=== PATIENT | female | born 2005 | race Caucasian/White ===

== ENCOUNTER 2023-04-12 15:46 | Observation (INO) ==
--- NOTE | 2023-04-12 15:58 | ED Triage Note ---
Date of Service April 12, 2023 History of Present Illness This patient was briefly evaluated while in triage. An abbreviated physical exam was performed. This patient is a 17-year-old Female who presents to the ED for evaluation of N/T over entire left side of body since September was just leg, now all left side progressively getting worse seen multiple places/providers primarily in [place] headaches cannot see neuro until August Her doctors told her to go to the ED if it ever got worse. Physical Exam GENERAL: NAD, ambulatory CARDIOVASCULAR: RRR RESPIRATORY: CTA ABDOMEN: BS x 4. Nontender to palpation. NEURO: Normal gait. No slurring of speech. No facial droop. 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 Initial orders for labs and / or imaging were placed and patient was placed in the waiting area until a bed is available. Please see further documentation for the full ED course.
[2023-04-12 16:37] LABS: Hematocrit (blood only) 34.8 % (37.0-47.0); Hemoglobin 11.8 g/dl (12.0-16.0); Mean Corpuscular Hemoglobin 29.1 pg (25.0-34.0); Mean Corpuscular Hgb Conc 33.9 g/dL (32.0-36.0); Mean Corpuscular Volume 85.7 fL (80.0-100.0); Mean Platelet Volume 10.7 fL (9.4-12.4); Platelet Count 279 K/uL (130-400); RDW Standard Deviation 37.7 fL (36.4-46.3); Red Blood Count 4.06 M/uL (4.20-5.40); White Blood Count 9.22 K/ul (4.8-10.8)
[2023-04-12 16:57] LABS: Alanine Aminotransferase 9 U/L (7-52); Albumin Globulin Ratio 1.5 (0.9-2); Albumin Level 4.4 gm/dl (3.4-5.0); Alkaline Phosphatase 44 U/L (34-104); Anion Gap 6 (3-11); Aspartate Aminotransferase 15 U/L (13-39); BUN Creatinine Ratio 13.6 (10-20); Bilirubin,Total 0.4 mg/dl (0.2-1.0); Blood Urea Nitrogen 9 mg/dl (6-23); Calcium 9.1 mg/dl (8.6-10.3); Carbon Dioxide 25 mmol/L (21-32); Chloride 107 mmol/L (98-107); Creatinine Clr Calc Pharmacy 133.3 ml/min; Est GFR (African American) 148.4 ml/min; Est GFR (Non-African American) 128.1 ml/min; Globulin 2.9 gm/dl (2.5-4.0); Glucose 83 mg/dl (70-99(Fasting)); Magnesium 2.2 mg/dl (1.7-2.4); Potassium 3.7 mmol/L (3.5-5.1); Sodium 138 mmol/L (136-145); Total Protein 7.3 gm/dl (6.0-8.3)
[2023-04-12 17:09] LABS: INR 0.9 (0.9-1.1); Partial Thromboplastin Time 27.6 Seconds (21.0-31.0); Prothrombin Time 10.3 Seconds (9.0-12.0)
[2023-04-12] MEDS ORDERED: OPTIRAY 320 500ml IV ONE (17:20)
--- NOTE | 2023-04-12 18:08 | CT Scan Report ---
CT angio neck with con, CT angio head w con, CT head/brain wo con CLINICAL HISTORY: headaches, left sided body N/T/W TECHNIQUE: Contiguous axial CT images of the head were acquired from the base of the skull to the praveen hilda without intravenous contrast administration. CT angiography of the head and neck was performed f ollowing intravenous administration of iodinated contrast. Coronal and sagittal MIPS were obtained fr om the axial data set and were submitted for review. Automated dose lowering techniques and/or adjus tment according to patient size were utilized for this examination. All measurements were calculated based on NASCET criteria. CT DOSE: 1021.11 mGy.cm Comparison: None available at the time of this dictation. FINDINGS: CT head: There is no acute intracranial hemorrhage or evidence of acute territorial infarction. No sh ift of the midline structures, mass effect, or extra-axial abnormalities are shown. Small thyroid nodules are seen which do not require follow-up by ACR criteria. CTA Neck: A 3 vessel aortic arch is shown. There is no significant atherosclerotic plaque in the aor tic arch or the origins of the innominate, left common carotid, and left subclavian arteries. The co mmon carotid, external carotid, cervical segments of the internal carotid arteries, and the cervical segments of the vertebral arteries are patent without hemodynamically significant stenosis. The left vertebral artery is dominant. CTA Head: The anterior and posterior cerebral circulations are patent. No hemodynamically significan t stenosis, aneurysm, dissection, or arteriovenous malformation is shown. IMPRESSION: 1. No acute intracranial hemorrhage, evidence of acute territorial infarction, or other acute intrac ranial disease process. 2. No occlusion, hemodynamically significant stenosis, or dissection in the major cervical arteries. 3. No occlusion, hemodynamically significant stenosis, aneurysm, dissection, or arteriovenous malfor mation in the major intracranial arteries. Assessment of stenosis of the internal carotid arteries is based on NASCET criteria. ACT 112: Negative or not required by law. Electronically signed by: Lamin Main M.D. 04/12/2023 6:06 PM
--- NOTE | 2023-04-12 19:15 | Emergency Department Note ---
Impression & Plan Acute left-sided weakness, Falling, Anemia ED Provider Note NAME: YOSELIN ESPINO AGE: 17 SEX: F : 2005 ARRIVES VIA: Walk-In INFORMANT: [Patient] ED PROVIDER(S): [Kiran Willingham MD] CHIEF COMPLAINT: TIA symptoms HISTORY OF PRESENT ILLNESS: The patient is a 17-year-old female who has had increasing numbness to the left side of her body for at least 6 months. It started with some pain in her left foot and she was initially diagnosed with a stress fracture and then an Achilles injury and then eventually, these were thought to be missed diagnosed. She has developed numbness that has spread from her foot up to now involve her left arm. In the last several days, things have worsened and she has fallen a few times because her left leg gives out. She trips at times. She drops things with her left hand. There is no headache, no chest pain. No right-sided symptoms. No speech issue. She has had MRIs of her cervical and lumbar spine within the last few weeks, no significant abnormalities on imaging. She has seen doctors in [place] where she typically resides, they have no answers for her issues. She has a neurology appointment set up for early next year. As things worsened, she presents to the ER for evaluation. The patient did contact her doctors office today in [facility], they referred her to the ER as things were worsening. She is a student here at [employer]. PMHx/PSHx/Social Hx: See Below PHYSICAL EXAM: GENERAL: Patient is in no acute distress. HEENT: No acute trauma, normocephalic atraumatic, mucous membranes moist, no nasal congestion. NECK: No stridor, no adenopathy, no meningismus, trachea is midline. LUNGS: Clear to auscultation bilaterally, no wheeze, no rhonchi, breath sounds equal. HEART: Without murmurs gallops or rubs, regular rate and rhythm. ABDOMEN: Soft, nontender, no peritonitis. EXTREMITIES: No cyanosis, full range of motion of all the joints without pain or difficulty. NEUROLOGIC: Oriented x 3. She has difficulty raising her left leg off the bed and cannot hold it for 5 seconds. She has some subtle drift of her left upper extremity as well. Cerebellar function is difficult in the left lower extremity but she does accomplish the task. No issues with cerebellar functioning of the left upper extremity. No speech slur or facial droop. Reflexes are 2/4 in the patella and Achilles bilaterally. SKIN: No jaundice, no diaphoresis. DIFFERENTIAL DIAGNOSIS: Lyme disease, demyelinating disease, MS, stroke, clots, arterial dissection, syphilis, viral illness, encephalitis, among others. EMERGENCY DEPARTMENT PROCEDURES: MEDICAL DECISION MAKING: There is no leukocytosis. A mild anemia was seen. There is a normal platelet count. Sed rate is not elevated making ongoing infection/inflammation less likely. There is no coagulopathy. No renal failure or significant electrolyte abnormality. No concerning liver enzyme elevation. C-reactive protein was not elevated making persistent infection/inflammation less likely. Patient appeared to be in a euthyroid state. Lyme disease testing returned negative. Syphilis testing is currently pending. Brain CT showed no acute bleed or mass effect. CT angio of the head and neck were performed, there was no significant stenosis or clot seen. On exam, patient did have left-sided weakness especially in the left lower extremity. No speech slur. She was not toxic or febrile. Patient requires a hospital stay and further work-up. She is in need of a thorough neurologic evaluation. She can be seen by neurology while here in our hospital. I spoke with the patient and her father. Given the ongoing symptoms, given the worsening of her condition, I do think a hospital stay is necessary. At this point, the cause for her complaint is unclear. Prior/Outside records/notes reviewed: Previous radiology reports/imaging. ECG per my interpretation: Indication was possible stroke. The ECG shows a normal sinus rhythm with a rate of 91. There is no ST elevation, no PVCs. The QTc is 428. Imaging/x-ray results per my interpretation: Chronic Medical/Social conditions affecting care: College student. Care/Management discussed with: Case management, the on-call hospitalistDr. Holder Level of care consideration(s): After review of the information above and other included data: --I believe the patient requires escalation of care to admission DISPOSITION: Admission with neurology consult. Past Med/Surg History Medical History No pertinent past medical history Surgical History (Updated 09/11/20 @ 12:41 by Arnold Vazquez MD) No pertinent past surgical history Social History Smoking Status: Never smoker Hx Substance Use: No Preferred Language: Tajik Communication Ability: Effective Purchasing And Claims Supervisor Required: No Beliefs That Will Affect Care: None Current Living Situation: Other Current Living Situation Comment: apartment with roomates Other Information That Helps Us Care for You: No Feels Safe at Home: Yes Safety Concerns: Feels Safe At This Time Assistive Devices: None Allergies Allergies Allergy/AdvReac Type Severity Reaction Status Date / Time dog dander Allergy Intermediate SNEEZING, Verified 04/12/23 19:27 CONGESTION Home Meds Home Medications Medication Instructions Recorded Confirmed atomoxetine 80 mg capsule 80 mg PO QAM 04/12/23 04/12/23 copper 380 square mm intrauterine 380 mm2 intrauterine CONTINOUS 04/12/23 04/12/23 device (ParaGard T 380A) cyanocobalamin (vitamin B-12) 3,000 mcg PO QAM 04/12/23 04/12/23 1,000 mcg tablet (Vitamin B-12) escitalopram oxalate 10 mg tablet 10 mg PO HS 04/12/23 04/12/23 (Lexapro) escitalopram oxalate 5 mg tablet 5 mg PO HS 04/12/23 04/12/23 (Lexapro) ferrous sulfate 325 mg (65 mg 325 mg PO QAM 04/12/23 04/12/23 iron) tablet (iron) Results & Data (ED) Vital Signs Vital Signs - 24 hr 04/12/23 15:55 04/12/23 18:45 04/12/23 19:40 Temperature 36.8 C Temperature Source Temporal Artery Scan Pulse Rate 108 H Pulse Rate [Finger] 93 H Respiratory Rate 18 16 Respiratory Effort / Characteristics Non-Labored Spontaneous Respiratory Depth Normal Blood Pressure 120/83 Blood Pressure [Left Arm] 114/76 Blood Pressure Mean 95 Blood Pressure Mean [Left Arm] 88 Blood Pressure Position Sitting Pulse Oximetry 99 100 99 Oxygen Delivery Method Room Air Room Air Room Air Sepsis Recent Fever Within 48 Hours No Sepsis New/Unexplained Change in Mental Status N/A Sepsis Action Taken by Nursing No Action Required 04/12/23 21:55 Temperature Temperature Source Pulse Rate 99 H Pulse Rate [Finger] Respiratory Rate Respiratory Effort / Characteristics Respiratory Depth Blood Pressure Blood Pressure [Left Arm] Blood Pressure Mean Blood Pressure Mean [Left Arm] Blood Pressure Position Pulse Oximetry Oxygen Delivery Method Sepsis Recent Fever Within 48 Hours Sepsis New/Unexplained Change in Mental Status Sepsis Action Taken by [facility] Medications Current Medication List: was personally reviewed by me Laboratory Data Attestation: I reviewed the patient's lab results. 04/12/23 16:01 04/12/23 16:01 Lab Results 04/12/23 04/12/23 04/12/23 Range/Units 16:01 16:01 16:01 WBC 9.22 (4.8-10.8) K/ul RBC 4.06 L (4.20-5.40) M/uL Hgb 11.8 L (12.0-16.0) g/dl Hct 34.8 L (37.0-47.0) % MCV 85.7 (80.0-100.0) fL MCH 29.1 (25.0-34.0) pg MCHC 33.9 (32.0-36.0) g/dL RDW Std Deviation 37.7 (36.4-46.3) fL RDW Coeff of Omega 12.0 (11.5-14.5) % Plt Count 279 (130-400) K/uL MPV 10.7 (9.4-12.4) fL ESR (0-20) mm/hr PT 10.3 (9.0-12.0) Seconds INR 0.9 (0.9-1.1) APTT 27.6 (21.0-31.0) Seconds PTT Ratio 1.0 Sodium 138 (136-145) mmol/L Potassium 3.7 (3.5-5.1) mmol/L Chloride 107 (98-107) mmol/L Carbon Dioxide 25 (21-32) mmol/L Anion Gap 6 (3-11) BUN 9 (6-23) mg/dl Creatinine 0.66 (0.6-1.2) mg/dl Est Cr Clr Drug Dosing 133.3 ml/min Est GFR ( Amer) 148.4 ml/min Est GFR (Non-Af Amer) 128.1 ml/min BUN/Creatinine Ratio 13.6 (10-20) Glucose 83 (70-99(Fasting)) mg/dl Calcium 9.1 (8.6-10.3) mg/dl Magnesium 2.2 (1.7-2.4) mg/dl Total Bilirubin 0.4 (0.2-1.0) mg/dl AST 15 (13-39) U/L ALT 9 (7-52) U/L Alkaline Phosphatase 44 (34-104) U/L C-Reactive Protein < 0.50 (0-0.5) mg/dl Total Protein 7.3 (6.0-8.3) gm/dl Albumin 4.4 (3.4-5.0) gm/dl Globulin 2.9 (2.5-4.0) gm/dl Albumin/Globulin Ratio 1.5 (0.9-2) TSH 2.796 (0.300-4.500) uIu/ml Lyme Disease IgG Ab (Negative) Lyme Disease IgM Ab (Negative) 04/12/23 04/12/23 Range/Units 16:01 16:02 WBC (4.8-10.8) K/ul RBC (4.20-5.40) M/uL Hgb (12.0-16.0) g/dl Hct (37.0-47.0) % MCV (80.0-100.0) fL MCH (25.0-34.0) pg MCHC (32.0-36.0) g/dL RDW Std Deviation (36.4-46.3) fL RDW Coeff of Omega (11.5-14.5) % Plt Count (130-400) K/uL MPV (9.4-12.4) fL ESR 9 (0-20) mm/hr PT (9.0-12.0) Seconds INR (0.9-1.1) APTT (21.0-31.0) Seconds PTT Ratio Sodium (136-145) mmol/L Potassium (3.5-5.1) mmol/L Chloride (98-107) mmol/L Carbon Dioxide (21-32) mmol/L Anion Gap (3-11) BUN (6-23) mg/dl Creatinine (0.6-1.2) mg/dl Est Cr Clr Drug Dosing ml/min Est GFR ( Amer) ml/min Est GFR (Non-Af Amer) ml/min BUN/Creatinine Ratio (10-20) Glucose (70-99(Fasting)) mg/dl Calcium (8.6-10.3) mg/dl Magnesium (1.7-2.4) mg/dl Total Bilirubin (0.2-1.0) mg/dl AST (13-39) U/L ALT (7-52) U/L Alkaline Phosphatase (34-104) U/L C-Reactive Protein (0-0.5) mg/dl Total Protein (6.0-8.3) gm/dl Albumin (3.4-5.0) gm/dl Globulin (2.5-4.0) gm/dl Albumin/Globulin Ratio (0.9-2) TSH (0.300-4.500) uIu/ml Lyme Disease IgG Ab Negative (Negative) Lyme Disease IgM Ab Negative (Negative) Administered Medications Escitalopram Oxalate (Escitalopram Oxalate 10 Mg Tab) 15 mg PO HS LASHAE Stop: 05/12/23 22:15 Last Admin: 04/13/23 00:00 Dose: 15 mg Documented By: VIVI Sodium Chloride (Nss) 1,000 mls @ 100 mls/hr IV .Q10H LASHAE Stop: 05/13/23 00:00 Last Admin: 04/13/23 00:01 Dose: 100 mls/hr Documented By: VIIV Discontinued Medications Gadobutrol (Gadobutrol 65ml Vial) 6.2 ml IV ONCE ONE Stop: 04/12/23 23:27 Last Admin: 04/12/23 23:27 Dose: 6.2 ml Documented By: DAVID Ioversol (Optiray 320 500ml) 116 ml IV ONCE ONE Stop: 04/12/23 17:21 Last Admin: 04/12/23 17:20 Dose: 116 ml Documented By: CHELY Lorazepam (Lorazepam 2 Mg/1 Ml Vial) 1 mg IV NOW PRN PRN Reason: Agitation Last Admin: 04/12/23 22:09 Dose: 1 mg Documented By: RAFAEL Morphine Sulfate (Morphine Sulfate 2 Mg/Ml Carp) 2 mg IV NOW STA Stop: 04/12/23 23:09 Last Admin: 04/12/23 23:18 Dose: 2 mg Documented By: VIVI Morphine Sulfate (Morphine Sulfate 2 Mg/Ml Carp) Confirm Administered Dose 2 mg .ROUTE .STK-MED ONE Stop: 04/12/23 23:13 Last Admin: 04/12/23 23:19 Dose: Not Given Documented By: VIVI Non-Formulary Medication (Escitalopram Oxalate [Lexapro]) 5 mg PO HS LASHAE Stop: 05/12/23 22:15 Last Admin: 04/13/23 00:03 Dose: Not Given Documented By: MACKG Imaging Data Radiologist's Impression: Head CT 04/12/23 15:58 CT angio neck with con, CT angio head w con, CT head/brain wo con CLINICAL HISTORY: headaches, left sided body N/T/W TECHNIQUE: Contiguous axial CT images of the head were acquired from the base of the skull to the vertex without intravenous contrast administration. CT angiography of the head and neck was performed following intravenous administration of iodinated contrast. Coronal and sagittal MIPS were obtained from the axial data set and were submitted for review. Automated dose lowering techniques and/or adjustment according to patient size were utilized for this examination. All measurements were calculated based on NASCET criteria. CT DOSE: 1021.11 mGy.cm Comparison: None available at the time of this dictation. FINDINGS: CT head: There is no acute intracranial hemorrhage or evidence of acute territorial infarction. No shift of the midline structures, mass effect, or extra-axial abnormalities are shown. Small thyroid nodules are seen which do not require follow-up by ACR criteria. CTA Neck: A 3 vessel aortic arch is shown. There is no significant atherosclerotic plaque in the aortic arch or the origins of the innominate, left common carotid, and left subclavian arteries. The common carotid, external carotid, cervical segments of the internal carotid arteries, and the cervical segments of the vertebral arteries are patent without hemodynamically significant stenosis. The left vertebral artery is dominant. CTA Head: The anterior and posterior cerebral circulations are patent. No hem odynamically significant stenosis, aneurysm, dissection, or arteriovenous malformation is shown. IMPRESSION: 1. No acute intracranial hemorrhage, evidence of acute territorial infarction, or other acute intracranial disease process. 2. No occlusion, hemodynamically significant stenosis, or dissection in the major cervical arteries. 3. No occlusion, hemodynamically significant stenosis, aneurysm, dissection, or arteriovenous malformation in the major intracranial arteries. Assessment of stenosis of the internal carotid arteries is based on NASCET criteria. ACT 112: Negative or not required by law. Electronically signed by: Lamin Main M.D. 04/12/2023 6:06 PM Head CTA 04/12/23 15:59 CT angio neck with con, CT angio head w con, CT head/brain wo con CLINICAL HISTORY: headaches, left sided body N/T/W TECHNIQUE: Contiguous axial CT images of the head were acquired from the base of the skull to the vertex without intravenous contrast administration. CT angiography of the head and neck was performed following intravenous administration of iodinated contrast. Coronal and sagittal MIPS were obtained from the axial data set and were submitted for review. Automated dose lowering techniques and/or adjustment according to patient size were utilized for this examination. All measurements were calculated based on NASCET criteria. CT DOSE: 1021.11 mGy.cm Comparison: None available at the time of this dictation. FINDINGS: CT head: There is no acute intracranial hemorrhage or evidence of acute territorial infarction. No shift of the midline structures, mass effect, or extra-axial abnormalities are shown. Small thyroid nodules are seen which do not require follow-up by ACR criteria. CTA Neck: A 3 vessel aortic arch is shown. There is no significant atherosclerotic plaque in the aortic arch or the origins of the innominate, left common carotid, and left subclavian arteries. The common carotid, external carotid, cervical segments of the internal carotid arteries, and the cervical segments of the vertebral arteries are patent without hemodynamically significant stenosis. The left vertebral artery is dominant. CTA Head: The anterior and posterior cerebral circulations are patent. No hemodynamically significant stenosis, aneurysm, dissection, or arteriovenous malformation is shown. IMPRESSION: 1. No acute intracranial hemorrhage, evidence of acute territorial infarction, or other acute intracranial disease process. 2. No occlusion, hemodynamically significant stenosis, or dissection in the major cervical arteries. 3. No occlusion, hemodynamically significant stenosis, aneurysm, dissection, or arteriovenous malformation in the major intracranial arteries. Assessment of stenosis of the internal carotid arteries is based on NASCET criteria. ACT 112: Negative or not required by law. Electronically signed by: Lamin Main M.D. 04/12/2023 6:06 PM Neck CTA 04/12/23 15:59 CT angio neck with con, CT angio head w con, CT head/brain wo con CLINICAL HISTORY: headaches, left sided body N/T/W TECHNIQUE: Contiguous axial CT images of the head were acquired from the base of the skull to the vertex without intravenous contrast administration. CT angiography of the head and neck was performed following intravenous administration of iodinated contrast. Coronal and sagittal MIPS were obtained from the axial data set and were submitted for review. Automated dose lowering techniques and/or adjustment according to patient size were utilized for this examination. All measurements were calculated based on NASCET criteria. CT DOSE: 1021.11 mGy.cm Comparison: None available at the time of this dictation. FINDINGS: CT head: There is no acute intracranial hemorrhage or evidence of acute territorial infarction. No shift of the midline structures, mass effect, or extra-axial abnormalities are shown. Small thyroid nodules are seen which do not require follow-up by ACR criteria. CTA Neck: A 3 vessel aortic arch is shown. There is no significant atherosclerotic plaque in the aortic arch or the origins of the innominate, left common carotid, and left subclavian arteries. The common carotid, external carotid, cervical segments of the internal carotid arteries, and the cervical segments of the vertebral arteries are patent without hemodynamically significant stenosis. The left vertebral artery is dominant. CTA Head: The anterior and posterior cerebral circulations are patent. No hemodynamically significant stenosis, aneurysm, dissection, or arteriovenous malformation is shown. IMPRESSION: 1. No acute intracranial hemorrhage, evidence of acute territorial infarction, or other acute intracranial disease process. 2. No occlusion, hemodynamically significant stenosis, or dissection in the major cervical arteries. 3. No occlusion, hemodynamically significant stenosis, aneurysm, dissection, or arteriovenous malformation in the major intracranial arteries. Assessment of stenosis of the internal carotid arteries is based on NASCET criteria. ACT 112: Negative or not required by law. Electronically signed by: Lamin Main M.D. 04/12/2023 6:06 PM Brain MRI 04/12/23 20:51 Exam(s): MRI HEAD W/WO Contrast IV Amt: 6.2cc gadavist EXAM: MR Head Without and With Intravenous Contrast CLINICAL HISTORY: Reason for exam: L sided numbness/weakness. TECHNIQUE: Magnetic resonance images of the head/brain without and with intravenous contrast in multiple planes. CONTRAST: Patient received 6.2cc gadavist of IV contrast COMPARISON: Comparison made to prior head CT from April 12, 2023. FINDINGS: Brain: Unremarkable. No mass. No hemorrhage. No acute infarct. The flow voids at the base the brain are intact. No evidence of abnormal enhancement. Ventricles: Unremarkable. No ventriculomegaly. Bones/joints: Unremarkable. Sinuses: Chronic ethmoid sinusitis. No acute sinusitis. Mastoid air cells: There is a tiny amount of fluid in the left mastoid air cells. No mastoid effusion. Orbits: Unremarkable as visualized. IMPRESSION: Negative MRI of the brain. Electronically signed by: Ann Perales MD 04/13/23 00:01 AM Discharge Plan Visit Data Chief Complaint: TIA Symptoms Stated Complaint: NUMBNESS, DIZZINESS, SLURRED SPEECH ED Provider: Kiran Willingham Discharge Problem: Acute left-sided weakness, Falling, Anemia Patient Disposition: Admitted As Inpatient Condition: Fair Discharge Instructions Interventions: ED Discharge Assessment Last Done: 04/12/23 22:16
[2023-04-12 19:46] LABS: Thyroid Stimulating Hormone 2.796 uIu/ml (0.300-4.500)
[2023-04-12 19:59] LABS: Lyme Ab IgG w/WB Rflx Negative (Negative); Lyme Ab IgM w/WB Rflx Negative (Negative)
[2023-04-12] MEDS ORDERED: LORazepam 2 MG/1 ML VIAL IV PRN (20:51)
--- NOTE | 2023-04-12 22:01 | History & Physical Report ---
Date of Service April 12, 2023 Assessment & Plan (1) Left-sided weakness: Plan: 17 yo female with PMHx ADD, anxiety, depression, iron deficiency anemia, and B12 deficiency presents with L sided weakness/numbness. #L sided weakness/numbness -presented with 6 months progressively worsening L sided symptoms with headache and blurry vision. Unclear etiology. Cannot exclude brain mass, stroke, MS, autoimmune. Her brother does have a h/o symptomatic arachnoid cyst. Lumbar and cervical spine MRI neg. Head CT neg. Head/neck CTA neg. Labs normal. Lyme neg. -Brain MRI w/wo contrast ordered -LP ordered -syphilis testing pending -ordered ESR, CRP, ISAURO -neuro consulted #ADD -cont. atomoxetine #Anxiety/depression -cont. lexapro DVT ppx: ambulation FEN/GI: NPO @ midnight for LP Code Status: full Dispo: med surg (2) Left sided numbness: (3) Pain in left ankle: (4) ADD (attention deficit disorder): (5) Anxiety and depression: (6) Iron deficiency anemia: (7) B12 deficiency: History of Present Illness Chief Complaint: L sided weakness/numbness Primary Care Provider: [facility] 17 yo female with PMHx ADD, anxiety, depression, iron deficiency anemia, and B12 deficiency presents with L sided weakness/numbness. 6 months ago patient started having left medial ankle pain which was thought to be due to injury. She was diagnosed with a stress fracture and was placed in a boot for 6 weeks. This did not resolve her symptoms and was subsequently diagnosed with Achilles tendinitis for which she did 6 weeks more physical therapy for again without improvement. She then started experiencing numbness and weakness in her left foot which progressively worsened and ascended up the left leg, left torso, and left upper extremity. She has tripped occasionally due to this. She also has associated left-sided headache with intermittent bilateral blurriness. Headache is worse at night. She has tried Advil for relief which has not helped. No new medications since symptom onset. Denies fevers, chest pain, shortness of breath, abdominal pain, nausea, vomiting, dysuria, fatigue. She did have a lumbar and cervical spine MRI couple weeks ago which were negative. Of note her brother does have a history of an symptomatic arachnoid cyst. No pertinent family history otherwise. Allergies Allergy/AdvReac Type Severity Reaction Status Date / Time dog dander Allergy Intermediate SNEEZING, Verified 04/12/23 19:27 CONGESTION Home Medications Medication Instructions Recorded Confirmed Type atomoxetine 80 mg capsule 80 mg PO QAM 04/12/23 04/12/23 History copper 380 square mm intrauterine 380 mm2 intrauterine CONTINOUS 04/12/23 04/12/23 History device (ParaGard T 380A) cyanocobalamin (vitamin B-12) 3,000 mcg PO QAM 04/12/23 04/12/23 History 1,000 mcg tablet (Vitamin B-12) escitalopram oxalate 10 mg tablet 10 mg PO HS 04/12/23 04/12/23 History (Lexapro) escitalopram oxalate 5 mg tablet 5 mg PO HS 04/12/23 04/12/23 History (Lexapro) ferrous sulfate 325 mg (65 mg 325 mg PO QAM 04/12/23 04/12/23 History iron) tablet (iron) Past Med/Surg History Medical History No pertinent past medical history Surgical History (Updated 09/11/20 @ 12:41 by Arnold Vazquez MD) No pertinent past surgical history Social History Smoking Status: Never smoker Hx Substance Use: No Preferred Language: Icelandic Communication Ability: Effective Teaching Manager Required: No Beliefs That Will Affect Care: None Current Living Situation: Other Current Living Situation Comment: apartment with roomates Other Information That Helps Us Care for You: No Feels Safe at Home: Yes Safety Concerns: Feels Safe At This Time Assistive Devices: None Review of Systems Review of Systems: All systems reviewed & are unremarkable except as noted in HPI & below Physical Exam Physical Exam: Constitutional: in no acute distress, pleasant and normal affect, intact memory. AOx3. Vitals as above. HEENT: No scleral injection or discharge. Moist mucous membranes. Neck: Supple without lymphadenopathy or thyromegaly. Trachea midline. Lungs: Clear to auscultation bilaterally with good effort. No wheezes/rales/rhonchi. Cardiac: Regular rate and rhythm. No murmurs. No lower extremity edema. 2+ distal peripheral pulses. Abdomen: Bowel sounds present. Soft, nontender, and nondistended.No guarding. No hepatosplenomegaly. MSK: No cyanosis or clubbing. Skin: No rashes, warm, dry. Neurologic: L upper and lower extremity with 3/5 strength and reduced sensation when compared to R. PERRL. Cranial nerves intact. Results & Data Results & Data Vital Signs (Past 12 Hours) Vital Signs Temp Pulse Pulse Resp BP BP Pulse Ox 04/12/23 21:58 89 18 113/77 97 04/12/23 19:40 99 04/12/23 18:45 93 H 16 114/76 100 04/12/23 15:55 36.8 C 108 H 18 120/83 99 O2 Del Method 04/12/23 21:58 Room Air 04/12/23 19:40 Room Air 04/12/23 18:45 Room Air 04/12/23 15:55 Room Air Laboratory Results Laboratory Results WBC 9.22 K/ul (4.8-10.8) 04/12/23 16:01 RBC 4.06 M/uL (4.20-5.40) L 04/12/23 16:01 Hgb 11.8 g/dl (12.0-16.0) L 04/12/23 16:01 Hct 34.8 % (37.0-47.0) L 04/12/23 16:01 MCV 85.7 fL (80.0-100.0) 04/12/23 16:01 MCH 29.1 pg (25.0-34.0) 04/12/23 16:01 MCHC 33.9 g/dL (32.0-36.0) 04/12/23 16:01 RDW Std Deviation 37.7 fL (36.4-46.3) 04/12/23 16:01 RDW Coeff of Omega 12.0 % (11.5-14.5) 04/12/23 16:01 Plt Count 279 K/uL (130-400) 04/12/23 16:01 MPV 10.7 fL (9.4-12.4) 04/12/23 16:01 PT 10.3 Seconds (9.0-12.0) 04/12/23 16:01 INR 0.9 (0.9-1.1) 04/12/23 16:01 APTT 27.6 Seconds (21.0-31.0) 04/12/23 16:01 PTT Ratio 1.0 04/12/23 16:01 Sodium 138 mmol/L (136-145) 04/12/23 16:01 Potassium 3.7 mmol/L (3.5-5.1) 04/12/23 16:01 Chloride 107 mmol/L (98-107) 04/12/23 16:01 Carbon Dioxide 25 mmol/L (21-32) 04/12/23 16:01 Anion Gap 6 (3-11) 04/12/23 16:01 BUN 9 mg/dl (6-23) 04/12/23 16:01 Creatinine 0.66 mg/dl (0.6-1.2) 04/12/23 16:01 Est Cr Clr Drug Dosing 133.3 ml/min 04/12/23 16:01 Est GFR ( Amer) 148.4 ml/min 04/12/23 16:01 Est GFR (Non-Af Amer) 128.1 ml/min 04/12/23 16:01 BUN/Creatinine Ratio 13.6 (10-20) 04/12/23 16:01 Glucose 83 mg/dl (70-99(Fasting)) 04/12/23 16:01 Calcium 9.1 mg/dl (8.6-10.3) 04/12/23 16:01 Magnesium 2.2 mg/dl (1.7-2.4) 04/12/23 16:01 Total Bilirubin 0.4 mg/dl (0.2-1.0) 04/12/23 16:01 AST 15 U/L (13-39) 04/12/23 16:01 ALT 9 U/L (7-52) 04/12/23 16:01 Alkaline Phosphatase 44 U/L (34-104) 04/12/23 16:01 Total Protein 7.3 gm/dl (6.0-8.3) 04/12/23 16:01 Albumin 4.4 gm/dl (3.4-5.0) 04/12/23 16:01 Globulin 2.9 gm/dl (2.5-4.0) 04/12/23 16:01 Albumin/Globulin Ratio 1.5 (0.9-2) 04/12/23 16:01 TSH 2.796 uIu/ml (0.300-4.500) 04/12/23 16:01 Lyme Disease IgG Ab Negative (Negative) 04/12/23 16:02 Lyme Disease IgM Ab Negative (Negative) 04/12/23 16:[address] 04/12/23 15:58 CT angio neck with con, CT angio head w con, CT head/brain wo con CLINICAL HISTORY: headaches, left sided body N/T/W TECHNIQUE: Contiguous axial CT images of the head were acquired from the base of the skull to the vertex without intravenous contrast administration. CT angiography of the head and neck was performed following intravenous administration of iodinated contrast. Coronal and sagittal MIPS were obtained from the axial data set and were submitted for review. Automated dose lowering techniques and/or adjustment according to patient size were utilized for this examination. All measurements were calculated based on NASCET criteria. CT DOSE: 1021.11 mGy.cm Comparison: None available at the time of this dictation. FINDINGS: CT head: There is no acute intracranial hemorrhage or evidence of acute territorial infarction. No shift of the midline structures, mass effect, or extra-axial abnormalities are shown. Small thyroid nodules are seen which do not require follow-up by ACR criteria. CTA Neck: A 3 vessel aortic arch is shown. There is no significant atherosclerotic plaque in the aortic arch or the origins of the innominate, left common carotid, and left subclavian arteries. The common carotid, external carotid, cervical segments of the internal carotid arteries, and the cervical segments of the vertebral arteries are patent without hemodynamically significant stenosis. The left vertebral artery is dominant. CTA Head: The anterior and posterior cerebral circulations are patent. No hemodynamically significant stenosis, aneurysm, dissection, or arteriovenous malformation is shown. IMPRESSION: 1. No acute intracranial hemorrhage, evidence of acute territorial infarction, or other acute intracranial disease process. 2. No occlusion, hemodynamically significant stenosis, or dissection in the major cervical arteries. 3. No occlusion, hemodynamically significant stenosis, aneurysm, dissection, or arteriovenous malformation in the major intracranial arteries. Assessment of stenosis of the internal carotid arteries is based on NASCET criteria. ACT 112: Negative or not required by law. Electronically signed by: Lamin Main M.D. 04/12/2023 6:06 PM Head CTA 04/12/23 15:59 CT angio neck with con, CT angio head w con, CT head/brain wo con CLINICAL HISTORY: headaches, left sided body N/T/W TECHNIQUE: Contiguous axial CT images of the head were acquired from the base of the skull to the vertex without intravenous contrast administration. CT angiography of the head and neck was performed following intravenous administration of iodinated contrast. Coronal and sagittal MIPS were obtained from the axial data set and were submitted for review. Automated dose lowering techniques and/or adjustment according to patient size were utilized for this examination. All measurements were calculated based on NASCET criteria. CT DOSE: 1021.11 mGy.cm Comparison: None available at the time of this dictation. FINDINGS: CT head: There is no acute intracranial hemorrhage or evidence of acute territorial infarction. No shift of the midline structures, mass effect, or extra-axial abnormalities are shown. Small thyroid nodules are seen which do not require follow-up by ACR criteria. CTA Neck: A 3 vessel aortic arch is shown. There is no significant atherosclerotic plaque in the aortic arch or the origins of the innominate, left common carotid, and left subclavian arteries. The common carotid, external carotid, cervical segments of the internal carotid arteries, and the cervical segments of the vertebral arteries are patent without hemodynamically significant stenosis. The left vertebral artery is dominant. CTA Head: The anterior and posterior cerebral circulations are patent. No hemodynamically significant stenosis, aneurysm, dissection, or arteriovenous malformation is shown. IMPRESSION: 1. No acute intracranial hemorrhage, evidence of acute territorial infarction, or other acute intracranial disease process. 2. No occlusion, hemodynamically significant stenosis, or dissection in the major cervical arteries. 3. No occlusion, hemodynamically significant stenosis, aneurysm, dissection, or arteriovenous malformation in the major intracranial arteries. Assessment of stenosis of the internal carotid arteries is based on NASCET criteria. ACT 112: Negative or not required by law. Electronically signed by: Lamin Main M.D. 04/12/2023 6:06 PM Neck CTA 04/12/23 15:59 CT angio neck with con, CT angio head w con, CT head/brain wo con CLINICAL HISTORY: headaches, left sided body N/T/W TECHNIQUE: Contiguous axial CT images of the head were acquired from the base of the skull to the vertex without intravenous contrast administration. CT angiography of the head and neck was performed following intravenous administration of iodinated contrast. Coronal and sagittal MIPS were obtained from the axial data set and were submitted for review. Automated dose lowering techniques and/or adjustment according to patient size were utilized for this examination. All measurements were calculated based on NASCET criteria. CT DOSE: 1021.11 mGy.cm Comparison: None available at the time of this dictation. FINDINGS: CT head: There is no acute intracranial hemorrhage or evidence of acute territorial infarction. No shift of the midline structures, mass effect, or extra-axial abnormalities are shown. Small thyroid nodules are seen which do not require follow-up by ACR criteria. CTA Neck: A 3 vessel aortic arch is shown. There is no significant atherosclerotic plaque in the aortic arch or the origins of the innominate, left common carotid, and left subclavian arteries. The common carotid, external carotid, cervical segments of the internal carotid arteries, and the cervical segments of the vertebral arteries are patent without hemodynamically significant stenosis. The left vertebral artery is dominant. CTA Head: The anterior and posterior cerebral circulations are patent. No hemodynamically significant stenosis, aneurysm, dissection, or arteriovenous malformation is shown. IMPRESSION: 1. No acute intracranial hemorrhage, evidence of acute territorial infarction, or other acute intracranial disease process. 2. No occlusion, hemodynamically significant stenosis, or dissection in the major cervical arteries. 3. No occlusion, hemodynamically significant stenosis, aneurysm, dissection, or arteriovenous malformation in the major intracranial arteries. Assessment of stenosis of the internal carotid arteries is based on NASCET criteria. ACT 112: Negative or not required by law. Electronically signed by: Lamin Main M.D. 04/12/2023 6:06 PM Supervising Physician Co-Signing Physician Notes Attending addendum: I have supervised the medical residents activities, and agree with the H&P unless as otherwise noted. Assessment and Plan: Progressive left-sided weakness and numbness- With headache and blurry vision x6 months Patient has had MRI lumbar spine and C-spine both of which have been negative Order MRI brain with and without contrast Order lumbar puncture fluoroscopy guided Ordered sed rate, CRP ISAURO Lyme disease IgM and IgG are negative RPR negative, FTA-ABS pending Consult neurology ADD/anxiety/depression- Continue atomoxetine and Lexapro B12 deficiency- Continue 3000 mcg every morning Resident Activity Tracking Resident Involvement: Resident Care Provided Care Provided: [facility] Medicine
[2023-04-12] MEDS ORDERED: NON-FORMULARY MEDICATION (Escitalopram Oxalate [Lexapro] 5 mg Tablet) PO SCH (22:16)
[2023-04-12] MEDS ORDERED: ONDANSETRON INJ 2 MG/ML 2 ML VIAL IV PRN (22:16)
[2023-04-12] MEDS ORDERED: ESCITALOPRAM OXALATE 10 MG TAB PO SCH (22:16)
[2023-04-12] MEDS ORDERED: ACETAMINOPHEN 1,000 MG/100 ML VIAL IV PRN (22:16)
[2023-04-12] MEDS ORDERED: MoRPHine SULFATE 2 MG/ML CARP IV STA (23:08)
[2023-04-12] MEDS ORDERED: MoRPHine SULFATE 2 MG/ML CARP ONE (23:12)
[2023-04-12] MEDS ORDERED: GADOBUTROL 65ML VIAL IV ONE (23:26)
[2023-04-12 23:57] LABS: C Reactive Protein < 0.50 mg/dl (0-0.5)
[2023-04-13] MEDS: SODIUM CHLORIDE 0.9% 1,000 ML IV SCH ×2 (00:01→13:13)
--- NOTE | 2023-04-13 00:02 | Magnetic Resonance Report ---
Exam(s): MRI HEAD W/WO Contrast IV Amt: 6.2cc gadavist EXAM: MR Head Without and With Intravenous Contrast CLINICAL HISTORY: Reason for exam: L sided numbness/weakness. TECHNIQUE: Magnetic resonance images of the head/brain without and with intravenous contrast in multiple planes. CONTRAST: Patient received 6.2cc gadavist of IV contrast COMPARISON: Comparison made to prior head CT from April 12, 2023. FINDINGS: Brain: Unremarkable. No mass. No hemorrhage. No acute infarct. The flow voids at the base the brain are intact. No evidence of abnormal enhancement. Ventricles: Unremarkable. No ventriculomegaly. Bones/joints: Unremarkable. Sinuses: Chronic ethmoid sinusitis. No acute sinusitis. Mastoid air cells: There is a tiny amount of fluid in the left mastoid air cells. No mastoid effusion. Orbits: Unremarkable as visualized. IMPRESSION: Negative MRI of the brain. Electronically signed by: Ann Perales MD 04/13/23 00:01 AM
[2023-04-13 01:22] LABS: Rapid Plasma Reagin Nonreactive (Nonreactive)
--- NOTE | 2023-04-13 06:40 | Billing Data ---
Date of Service April 13, 2023 Coding Level of Care Code 88894 INT INP/OBS CARE
--- NOTE | 2023-04-13 06:49 | Hospitalist Progress Note ---
Date of Service April 13, 2023 Assessment & Plan (1) Left-sided weakness: (2) Left sided numbness: (3) Pain in left ankle: (4) ADD (attention deficit disorder): (5) Anxiety and depression: (6) Iron deficiency anemia: (7) B12 deficiency: Plan 17 yo female with PMHx ADD, anxiety, depression, iron deficiency anemia, and B12 deficiency presents with L sided weakness/numbness. #L sided weakness/numbness -presented with 6 months progressively worsening L sided symptoms with headache and blurry vision. Unclear etiology. Cannot exclude brain mass, stroke, MS, autoimmune. Her brother does have a h/o symptomatic arachnoid cyst. Lumbar and cervical spine MRI neg. Head CT neg. Head/neck CTA neg. Labs normal. Lyme neg. -Brain MRI w/wo contrast negative. -syphilis testing pending -ordered ESR, CRP, ISAURO -neuro consulted -Lumbar puncture not needed. -Recommend to discontinue atomoxetine. Also recommend EMG/NCV of the left arm and leg. Patient states that she has already had any EMG of the leg at [place]. Unable to see records. -Leading diagnosis is conversion disorder -PT/OT ordered given that patient is having falls. If cleared from PT and OT then patient can be discharged and have outpatient follow-up on further work-up of left-sided weakness. #ADD -D/c atomoxetine. -Patient has not tried any other medications besides this. Recommend patient follow-up with provider who prescribed and trial with a different medication for ADD. #Anxiety/depression -cont. lexapro DVT ppx: ambulation Code Status: full Dispo: med surg Admission and Anticipated Discharge Date Admission Date: April 12, 2023 Subjective Patient was seen bedside this morning. She continues to have left-sided weakness. She states that she has seen [facility] for this issue and had an EMG done which was negative. They recommended that she follow-up with a neurologist but she is not able to get in till October. Review of Systems Review of Systems: All systems reviewed & are unremarkable except as noted in Subjective Physical Exam Physical Exam: Constitutional: in no acute distress, pleasant and normal affect, intact memory. AOx3. Vitals as above. HEENT: No scleral injection or discharge. Moist mucous membranes. Neck: Supple without lymphadenopathy or thyromegaly. Trachea midline. Lungs: Clear to auscultation bilaterally with good effort. No wheezes/rales/rhonchi. Cardiac: Regular rate and rhythm. No murmurs. No lower extremity edema. 2+ distal peripheral pulses. Abdomen: Bowel sounds present. Soft, nontender, and nondistended.No guarding. No hepatosplenomegaly. MSK: No cyanosis or clubbing. Skin: No rashes, warm, dry. Neurologic: L upper and lower extremity with 3/5 strength and reduced sensation when compared to R. PERRL. Cranial nerves intact. Results & Data Results & Data Vital Signs (Past 12 Hours) Vital Signs Temp Pulse Pulse Resp BP Pulse Ox O2 Del Method 04/13/23 06:00 98 Room Air 04/13/23 00:14 36.9 C 89 16 124/66 99 Room Air 04/13/23 00:13 89 16 124/66 99 Room Air 04/12/23 21:55 99 H 04/12/23 21:58 89 18 113/77 97 Room Air 04/12/23 19:40 99 Room Air Resident Activity Tracking Resident Involvement: Resident Care Provided Care Provided: Adult Hospital Medicine
--- NOTE | 2023-04-13 07:58 | Electrocardiogram Report ---
Test Reason : Blood Pressure : / mmHG Vent. Rate : 091 BPM Atrial Rate : 091 BPM P-R Int : 140 ms QRS Dur : 080 ms QT Int : 348 ms P-R-T Axes : 071 082 051 degrees QTc Int : 428 ms Normal sinus rhythm Normal ECG No previous ECGs available Confirmed by Steven Mcconnell ([id number]) on 04/13/2023 7:57:45 AM Referred By: REFERRED SELF Confirmed By:Chris Mcconnell
[2023-04-13] MEDS ORDERED: ATOMOXETINE HCL 40 MG CAPSULE PO SCH (09:00)
--- NOTE | 2023-04-13 10:54 | Neurology Consultation ---
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 Her weakness is inconsistent and has a giveaway character. She has had a very thorough neuroimaging evaluation including MRI of the brain, cervical, and lumbar spine which has been unremarkable. She has had a normal CTA of the head and neck as well. No evidence of stroke, neoplasm, or demyelinating disease. No evidence of spinal myelopathy or significant spinal stenosis. The patient does not appear to be acutely ill, no signs or symptoms suggestive of meningitis. No history of seizures. She does complain of a mild low-grade nonmigrainous headache, no history of migraine. 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 Again, no history of migraine or hemiplegic migraine. There is not appear to be a compelling reason to pursue a lumbar puncture in this patient. Follow-up with results of ISAURO screen, consider additional rheumatologic panel. Consultations with PT/OT Consider outpatient EMG/NCV of the left arm and leg Consider discontinuation of atomoxetine given possibility of adverse reaction History of Present Illness Reason for Consultation: Nory Requesting Physician: left sided weakness, numbness Attending Physician: Steven Choe MD History of Present Illness The patient is a 17-year-old female with a chief complaint of left-sided numbness and weakness. Her symptoms began about 6 months ago, initially characterized by rather abrupt onset medial left ankle pain, without associated antecedent injury. She has been evaluated by [facility] orthopedics as an outpatient and was thought to have Achilles tendinitis. She was treated with a corticosteroid injection and physical therapy. More recently, she developed numbness affecting the entire left side of her body, left leg, arm, thorax, and head which seems to split at the midline. She also complains of a feeling of weakness affecting the left arm and leg. She complains of a low-grade nonspecific headache, without associated nausea or light or sound sensitivity. She does not endorse a history of migraine. She has recently had MRI of the cervical and lumbar spine completed as an outpatient. The studies were done on March 29, 2023 and were unremarkable. She has a minor central disc protrusion at L4-5 without associated central canal or neuroforaminal stenosis. No C-spine pathology identified. Normal spinal cord. I independently reviewed these images. Patient has also had an unremarkable CT of the head and CTA of the head and neck. No evidence of hemorrhage, infarct, or vascular abnormality. A brain MRI was completed yesterday as well, also unremarkable, no evidence of stroke, demyelinating disease, hemorrhage, MS, abnormal postcontrast enhancement or other pathology. I independently reviewed these images. I evaluated this patient in the emergency department, her mother was at bedside. She is pleasant and cooperative and in no acute distress. Allergies Allergy/AdvReac Type Severity Reaction Status Date / Time dog dander Allergy Intermediate SNEEZING, Verified 04/12/23 19:27 CONGESTION Home Medications Medication Instructions Recorded Confirmed Type atomoxetine 80 mg capsule 80 mg PO QAM 04/12/23 04/12/23 History copper 380 square mm intrauterine 380 mm2 intrauterine CONTINOUS 04/12/23 04/12/23 History device (ParaGard T 380A) cyanocobalamin (vitamin B-12) 3,000 mcg PO QAM 04/12/23 04/12/23 History 1,000 mcg tablet (Vitamin B-12) escitalopram oxalate 10 mg tablet 10 mg PO HS 04/12/23 04/12/23 History (Lexapro) escitalopram oxalate 5 mg tablet 5 mg PO HS 04/12/23 04/12/23 History (Lexapro) ferrous sulfate 325 mg (65 mg 325 mg PO QAM 04/12/23 04/12/23 History iron) tablet (iron) Patient History Medical History No pertinent past medical history Surgical History (Updated 09/11/20 @ 12:41 by Arnold Vazquez MD) No pertinent past surgical history Social History Smoking Status: Never smoker Hx Substance Use: No Preferred Language: Uzbek Communication Ability: Effective Knot Borer Required: No Beliefs That Will Affect Care: None Current Living Situation: Other Current Living Situation Comment: apartment with roomates Other Information That Helps Us Care for You: No Feels Safe at Home: Yes Safety Concerns: Feels Safe At This Time Assistive Devices: None Review of Systems Constitutional: no fever and no chills Eyes: no blind spots and no diplopia Ear, Nose, Mouth, Throat: no ear pain and no hearing loss Respiratory: no cough and no dyspnea Cardiovascular: no chest pain and no palpitations Gastrointestinal: no nausea and no vomiting Genitourinary: no dysuria and no urinary incontinence Musculoskeletal: no back pain, no neck pain, no joint pain, no stiffness and no myalgia Integumentary: no rash and no lesions Neurologic: as per Subjective / HPI, + localized weakness, + loss of sensation and + headache(s); no tremor(s), no abnormal movements, no abnormal speech, no confusion and no memory loss Psychiatric: no depression and no anxiety Hematologic / Lymphatic: no easy bleeding and no easy bruising Exam (Neuro) Constitutional: well developed and well nourished; no acute distress Eyes: normal visual monterroso by confrontation, PERRL and EOM intact bilaterally Neurologic: Oriented to:: Person, Place and Time Memory: Short Term Intact and Remote Intact Attention: Span Intact, Concentration Intact and Visual Intact Speech Fluency: negative Dysarthria or Dysfluency Speech Aphasia: negative Aphasia Fund of Knowledge: Current Events, Past History and Vocabulary Cranial Nerves: Normal II, III, IV, , VII, VIII, IX, X, XI and XII; Abnorm V (Reports decreased sensation to light touch for the upper, middle, and lower aspect of the left face.) Motor Strength: Normal Lower Extremities and Normal Upper Extremities Motor Tone: Normal Lower Extremities and Normal Upper Extremities Muscle Bulk/Involuntary Movements: No Involuntary Movements; negative Muscle Atrophy Sensation: negative Light Touch Intact (Reports relative decreased to light touch for the left face, arm, leg, and torso, splitting the midline), Pain/Temperature Intact, Vibration Intact or Proprioception Intact Coordination: Normal; negative Dysdiadochokinesia, Finger-Nose Abnormal or Heel-[place] Abnormal Deep Tendon Reflexes: Rt Triceps: 2+, Lt Triceps: 2+, Rt Biceps: 2+, Lt Biceps: 2+, Rt Brachioradialis: 2+, Lt Brachioradialis: 2+, Rt Patellar: 2+, Lt Patellar: 2+, Rt Ankle: 2+ and Lt Ankle: 2+ Special Tests: negative Babinski Present Details: Exhibits giveaway mild weakness for the left arm and leg. Normal facility/fine finger movements. Results & Data Vital Signs (Past 12 Hours) Vital Signs Temp Pulse Resp BP Pulse Ox O2 Del Method 04/13/23 07:00 86 18 118/69 98 Room Air 04/13/23 06:00 98 Room Air 04/13/23 00:14 36.9 C 89 16 124/66 99 Room Air 04/13/23 00:13 89 16 124/66 99 Room Air Laboratory Results WBC 9.22, hemoglobin 11.8, hematocrit 34.8, MCV 85.7, platelet count 279, sodium 138, potassium 3.7, BUN 9, creatinine 0.66, glucose 83, magnesium 2.2, AST 15, ALT 9, CRP less than 0.50, TSH 2.796, RPR nonreactive, Lyme screen negative, vitamin B12 and ISAURO screen pending Diagnostic Findings MRI of the brain, CTA of the head and neck, CT of the head, MRI of the lumbar and cervical spine are as described in the HPI, I independently reviewed these images. An electrocardiogram revealed a normal sinus rhythm, 91 bpm. 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
--- NOTE | 2023-04-13 16:39 | Discharge Summary ---
Date of Service April 13, 2023 Admission HPI Per Admitting Provider 17 yo female with PMHx ADD, anxiety, depression, iron deficiency anemia, and B12 deficiency presents with L sided weakness/numbness. 6 months ago patient started having left medial ankle pain which was thought to be due to injury. She was diagnosed with a stress fracture and was placed in a boot for 6 weeks. This did not resolve her symptoms and was subsequently diagnosed with Achilles tendinitis for which she did 6 weeks more physical therapy for again without improvement. She then started experiencing numbness and weakness in her left foot which progressively worsened and ascended up the left leg, left torso, and left upper extremity. She has tripped occasionally due to this. She also has associated left-sided headache with intermittent bilateral blurriness. Headache is worse at night. She has tried Advil for relief which has not helped. No new medications since symptom onset. Denies fevers, chest pain, shortness of breath, abdominal pain, nausea, vomiting, dysuria, fatigue. She did have a l umbar and cervical spine MRI couple weeks ago which were negative. Of note her brother does have a history of an symptomatic arachnoid cyst. No pertinent family history otherwise. Admission Exam Per Admitting Provider Constitutional: in no acute distress, pleasant and normal affect, intact memory. AOx3. Vitals as above. HEENT: No scleral injection or discharge. Moist mucous membranes. Neck: Supple without lymphadenopathy or thyromegaly. Trachea midline. Lungs: Clear to auscultation bilaterally with good effort. No wheezes/rales/rhonchi. Cardiac: Regular rate and rhythm. No murmurs. No lower extremity edema. 2+ distal peripheral pulses. Abdomen: Bowel sounds present. Soft, nontender, and nondistended.No guarding. No hepatosplenomegaly. MSK: No cyanosis or clubbing. Skin: No rashes, warm, dry. Neurologic: L upper and lower extremity with 3/5 strength and reduced sensation when compared to R. PERRL. Cranial nerves intact. Principal Diagnosis Conversion disorder Discharge Exam Constitutional: well-appearing, no acute distress HEENT: NCAT, no conjunctival injection CV: regular rhythm, no murmur appreciated, extremities well-perfused, no LE edema Resp: CTABL, no wheezes/rales/rhonchi appreciated, no increased work of breathing GI: soft, nondistended, nontender, BS normoactive MSK: no gross deformities appreciated Skin: warm, dry, no rash appreciated Neuro: Left upper and left lower extremity reduced strength and sensation when compared to the right. Discharge Data Allergies Allergy/AdvReac Type Severity Reaction Status Date / Time dog dander Allergy Intermediate SNEEZING, Verified 04/12/23 19:27 CONGESTION Consultations 04/12/23 19:51 ED Decision to Admit Stat 04/12/23 21:59 Consult Neurology Routine Ordered Studies 04/12/23 15:58 CT head/brain wo con Stat 04/12/23 15:59 CT angio head w con Stat CT angio neck with con Stat 04/12/23 20:51 MRI Brain [MR brain wo/w con] Stat Head CT 04/12/23 15:58 CT angio neck with con, CT angio head w con, CT head/brain wo con CLINICAL HISTORY: headaches, left sided body N/T/W TECHNIQUE: Contiguous axial CT images of the head were acquired from the base of the skull to the vertex without intravenous contrast administration. CT angiography of the head and neck was performed following intravenous administration of iodinated contrast. Coronal and sagittal MIPS were obtained from the axial data set and were submitted for review. Automated dose lowering techniques and/or adjustment according to patient size were utilized for this examination. All measurements were calculated based on NASCET criteria. CT DOSE: 1021.11 mGy.cm Comparison: None available at the time of this dictation. FINDINGS: CT head: There is no acute intracranial hemorrhage or evidence of acute territorial infarction. No shift of the midline structures, mass effect, or extra-axial abnormalities are shown. Small thyroid nodules are seen which do not require follow-up by ACR criteria. CTA Neck: A 3 vessel aortic arch is shown. There is no significant atherosclerotic plaque in the aortic arch or the origins of the innominate, left common carotid, and left subclavian arteries. The common carotid, external carotid, cervical segments of the internal carotid arteries, and the cervical segments of the vertebral arteries are patent without hemodynamically significant stenosis. The left vertebral artery is dominant. CTA Head: The anterior and posterior cerebral circulations are patent. No hemodynamically significant stenosis, aneurysm, dissection, or arteriovenous malformation is shown. IMPRESSION: 1. No acute intracranial hemorrhage, evidence of acute territorial infarction, or other acute intracranial disease process. 2. No occlusion, hemodynamically significant stenosis, or dissection in the major cervical arteries. 3. No occlusion, hemodynamically significant stenosis, aneurysm, dissection, or arteriovenous malformation in the major intracranial arteries. Assessment of stenosis of the internal carotid arteries is based on NASCET criteria. ACT 112: Negative or not required by law. Electronically signed by: Lamin Main M.D. 04/12/2023 6:06 PM Head CTA 04/12/23 15:59 CT angio neck with con, CT angio head w con, CT head/brain wo con CLINICAL HISTORY: headaches, left sided body N/T/W TECHNIQUE: Contiguous axial CT images of the head were acquired from the base of the skull to the vertex without intravenous contrast administration. CT angiography of the head and neck was performed following intravenous administration of iodinated contrast. Coronal and sagittal MIPS were obtained from the axial data set and were submitted for review. Automated dose lowering techniques and/or adjustment according to patient size were utilized for this examination. All measurements were calculated based on NASCET criteria. CT DOSE: 1021.11 mGy.cm Comparison: None available at the time of this dictation. FINDINGS: CT head: There is no acute intracranial hemorrhage or evidence of acute territorial infarction. No shift of the midline structures, mass effect, or extra-axial abnormalities are shown. Small thyroid nodules are seen which do not require follow-up by ACR criteria. CTA Neck: A 3 vessel aortic arch is shown. There is no significant atherosclerotic plaque in the aortic arch or the origins of the innominate, left common carotid, and left subclavian arteries. The common carotid, external carotid, cervical segments of the internal carotid arteries, and the cervical segments of the vertebral arteries are patent without hemodynamically significant stenosis. The left vertebral artery is dominant. CTA Head: The anterior and posterior cerebral circulations are patent. No hemod ynamically significant stenosis, aneurysm, dissection, or arteriovenous malformation is shown. IMPRESSION: 1. No acute intracranial hemorrhage, evidence of acute territorial infarction, or other acute intracranial disease process. 2. No occlusion, hemodynamically significant stenosis, or dissection in the major cervical arteries. 3. No occlusion, hemodynamically significant stenosis, aneurysm, dissection, or arteriovenous malformation in the major intracranial arteries. Assessment of stenosis of the internal carotid arteries is based on NASCET criteria. ACT 112: Negative or not required by law. Electronically signed by: Lamin Main M.D. 04/12/2023 6:06 PM Neck CTA 04/12/23 15:59 CT angio neck with con, CT angio head w con, CT head/brain wo con CLINICAL HISTORY: headaches, left sided body N/T/W TECHNIQUE: Contiguous axial CT images of the head were acquired from the base of the skull to the vertex without intravenous contrast administration. CT angiography of the head and neck was performed following intravenous administration of iodinated contrast. Coronal and sagittal MIPS were obtained from the axial data set and were submitted for review. Automated dose lowering techniques and/or adjustment according to patient size were utilized for this examination. All measurements were calculated based on NASCET criteria. CT DOSE: 1021.11 mGy.cm Comparison: None available at the time of this dictation. FINDINGS: CT head: There is no acute intracranial hemorrhage or evidence of acute territorial infarction. No shift of the midline structures, mass effect, or extra-axial abnormalities are shown. Small thyroid nodules are seen which do not require follow-up by ACR criteria. CTA Neck: A 3 vessel aortic arch is shown. There is no significant atherosclerotic plaque in the aortic arch or the origins of the innominate, left common carotid, and left subclavian arteries. The common carotid, external carotid, cervical segments of the internal carotid arteries, and the cervical segments of the vertebral arteries are patent without hemodynamically significant stenosis. The left vertebral artery is dominant. CTA Head: The anterior and posterior cerebral circulations are patent. No hemodynamically significant stenosis, aneurysm, dissection, or arteriovenous malformation is shown. IMPRESSION: 1. No acute intracranial hemorrhage, evidence of acute territorial infarction, or other acute intracranial disease process. 2. No occlusion, hemodynamically significant stenosis, or dissection in the major cervical arteries. 3. No occlusion, hemodynamically significant stenosis, aneurysm, dissection, or arteriovenous malformation in the major intracranial arteries. Assessment of stenosis of the internal carotid arteries is based on NASCET criteria. ACT 112: Negative or not required by law. Electronically signed by: Lamin Main M.D. 04/12/2023 6:06 PM Brain MRI 04/12/23 20:51 Exam(s): MRI HEAD W/WO Contrast IV Amt: 6.2cc gadavist EXAM: MR Head Without and With Intravenous Contrast CLINICAL HISTORY: Reason for exam: L sided numbness/weakness. TECHNIQUE: Magnetic resonance images of the head/brain without and with intravenous contrast in multiple planes. CONTRAST: Patient received 6.2cc gadavist of IV contrast COMPARISON: Comparison made to prior head CT from April 12, 2023. FINDINGS: Brain: Unremarkable. No mass. No hemorrhage. No acute infarct. The flow voids at the base the brain are intact. No evidence of abnormal enhancement. Ventricles: Unremarkable. No ventriculomegaly. Bones/joints: Unremarkable. Sinuses: Chronic ethmoid sinusitis. No acute sinusitis. Mastoid air cells: There is a tiny amount of fluid in the left mastoid air cells. No mastoid effusion. Orbits: Unremarkable as visualized. IMPRESSION: Negative MRI of the brain. Electronically signed by: Ann Perales MD 04/13/23 00:01 AM Hospital Course (1) Left-sided weakness: (2) Left sided numbness: (3) Pain in left ankle: (4) ADD (attention deficit disorder): (5) Anxiety and depression: (6) Iron deficiency anemia: (7) B12 deficiency: Plan 17 yo female with PMHx ADD, anxiety, depression, iron deficiency anemia, and B12 deficiency presents with L sided weakness/numbness. #L sided weakness/numbness -presented with 6 months progressively worsening L sided symptoms with headache and blurry vision. Unclear etiology. Cannot exclude brain mass, stroke, MS, autoimmune. Her brother does have a h/o symptomatic arachnoid cyst. Lumbar and cervical spine MRI neg. Head CT neg. Head/neck CTA neg. Labs normal. Lyme neg. -Brain MRI w/wo contrast negative. -Syphilis testing pending -ESR and CRP negative -ISAURO pending at time of discharge. -neuro consulted -Lumbar puncture not needed. -Recommend to discontinue atomoxetine. Also recommend EMG/NCV of the left arm and leg. Patient states that she has already had any EMG of the leg at [facility]. Unable to see records. -Leading diagnosis is conversion disorder #ADD -D/c atomoxetine. -Patient has not tried any other medications besides this. -Recommend patient follow-up with provider who prescribed and trial with a different medication for ADD, as this may be leading to her symptoms. #Anxiety/depression -cont. lexapro Total Time Total Time Spent Total Time Spent (In Minutes): Please refer to attendings attestation Discharge Plan Discharge Items Patient Disposition: Home - Self-Care Reason For Visit: L SIDED NUMBNESS/WEAKNESS Discharge Diagnosis: Conversion disorder Condition on Discharge: Fair Activity: Resume your previous activity Non-emergency contact: Primary Care Provider Call non-emergency contact if: you have any medication questions, your symptoms worsen and your pain is worsening Follow-up/Referrals: [facility] [Primary Care Provider] - Diet: Regular Addtl Attending Provider Instructions: You were admitted to the hospital for multiple symptoms including left-sided weakness, numbness and falls. You had an extensive neurologic workup including imaging studies which were all negative. Currently the most likely diagnosis is conversion disorder, in which there is an unclear but considerable disconnect between the body and brain resulting in neurologic symptoms such as the above. It will not require any medication or targeted treatment at present and may fade with time. We recommend following up on this with your PCP and possibly with neurology in the patient. A discharge summary will be sent to your primary care physician to ensure continuity of care. Please bring this discharge summary with you to your next office appointment so that your provider can review it at that time. Follow-up appointments: - Make a follow-up appointment with your PCP within the next week. It is very important that you follow up with them shortly after discharge from the hospital. Medications: Your medication list has been reviewed and reconciled upon discharge to ensure accuracy and continuity of care. An updated list of all your medications is included with your hospital discharge paperwork. Please review this list closely, and make note of any changes. -We recommend discontinuing atomoxetine/Strattera to see if this may help reduce the symptoms you have experienced. Please discuss this with your PCP at your nex t appointment. Take your medications as instructed; do not skip a dose of your medicines. Make sure all of your doctors know every medicine you are taking (including [id number] medicines, vitamins, and supplements). Call your primary care provider before taking any new medicines (including [id number] medicines, vitamins, and supplements), because some of these may interact with your current medications, or may make your symptoms worse. Tell your primary care provider if you cannot afford your medications. CONTACT YOUR PRIMARY CARE PROVIDER if you experience any of the following: -Weakness -Numbness -Blurry vision -Falls -Sensation of loss of control of your body - Difficulty following your treatment plan, or difficulty taking medications CALL 911 OR GO TO THE EMERGENCY DEPARTMENT if you experience any of the following: - Sudden, severe abdominal pain or nausea/vomiting - Severe chest pain, or chest pain that radiates (moves) to your jaw or arm - Sudden, severe shortness of breath or difficulty breathing Thank you for allowing us to participate in your care Pending Studies at Discharge: Yes Studies:: Treponemal antibody, ISAURO Stand-Alone Forms: My [facility] Medications and DC Order Prescriptions: Continued cyanocobalamin (vitamin B-12) [Vitamin B-12] 1,000 mcg Tablet 3,000 mcg PO QAM ferrous sulfate [iron] 325 mg (65 mg iron) Tablet 325 mg PO QAM escitalopram oxalate [Lexapro] 10 mg Tablet 10 mg PO HS Rx Instructions: TOTAL DOSE 15 MG--TAKES WITH 5 MG TAB. escitalopram oxalate [Lexapro] 5 mg Tablet 5 mg PO HS Rx Instructions: TOTAL DOSE 15 MG--TAKES WITH 10 MG TAB. ParaGard T 380A 380 square mm Intrauterine Device 380 mm2 INTRAUTERINE CONTINOUS Discontinued atomoxetine 80 mg Capsule 80 mg PO QAM Discharge Orders: Discharge Order (Routine); Ordered 04/13/23 Ordered By: Rolando Martinez Admission Data Admit Date/Time: 04/12/23 21:57 Attending Provider: Steven Choe Admit Provider: Jer Cueto Primary Care Provider: [facility] Other Providers: Jr Malagon ; Stanton Zamorano Other Interventions: Discharge Summary Assessment (RN) Last Done: 04/13/23 16:29 Supervising Physician Co-Signing Physician Notes Attending attestation Pt seen and examined in concert with Dr. Baker. In agreement with the documented findings as noted in the resident documentation with any exceptions or additions as noted here. Resting comfortably in bed - chronic left sided sensation change and weakness without acute exacerbation at present. On examination, S1/S2 nl RRR no MCG. CTAB. Abd NT/ND BS+ve. Str of the left UE and LE appears functionally variable on examination. Right side 5/5. CNII - XII grossly intact on evaluation. Left sided weakness/numbness - neurology consult - pending sendout testing but imaging and available lab studies without change. Will hold atomoxetine at this time in case that adverse effect is to blame. Consider alternative regimen in outpatient. Reviewed that her symptoms may not be related to a specific lesional deficit but may be functional in nature. Encourage f/u with neurology. Else see resident documentation as noted. Total attending physician time spent with this patient's care on the day of discharge: 40 minutes. Resident Activity Tracking Resident Involvement: Resident Care Provided Care Provided: Adult Hospital Medicine
[2023-04-14 14:03] LABS: Anti Nuclear Antibody Screen NEGATIVE (NEGATIVE)
== END 2023-04-13 17:45 | disposition home or self-care (01) | DRG 880 ==
LOC: ED 15:46 → SUATTDRO 21:57 → EDINP 21:57 → INTOOBSV 21:57 → 3W 04-13 12:52